=== PATIENT | female | born 1950 | race Caucasian/White ===

== ENCOUNTER 2024-01-17 14:25 | Outpatient (CLI) | payer MEDICAID, MEDICARE ==
[2024-01-17 16:03] LABS: BASOPHILS # (AUTO) 0.1 X10'3 (0-0.2); BASOPHILS % (AUTO) 0.9 % (0-1); EOSINOPHILS # (AUTO) 0.1 X10'3 (0-0.9); EOSINOPHILS % (AUTO) 1.1 % (0-6); LYMPHOCYTES # (AUTO) 2.3 X10'3 (1.1-4.8); LYMPHOCYTES % (AUTO) 27.1 % (21-51); MEAN CORPUSCULAR HEMOGLOBIN 29.4 PG (27.0-31.0); MEAN CORPUSCULAR HGB CONC 33.4 g/dL (33.0-36.5); MEAN CORPUSCULAR VOLUME 88.2 FL (78-98); MEAN PLATELET VOLUME 8.9 FL (7.4-10.4); MONOCYTES # (AUTO) 0.7 X10'3 (0-0.9); MONOCYTES % (AUTO) 8.3 % (2-12); NEUTROPHILS # (AUTO) 5.4 X10'3 (1.8-7.7); NEUTROPHILS % (AUTO) 62.6 % (42-75); PRE OP HEMATOCRIT 41.6 % (35.0-45.0); PRE OP HEMOGLOBIN 13.9 g/dL (12.0-16.0); PRE OP PLATELET COUNT 245 X10'3 (140-440); PRE OP WHITE BLOOD COUNT 8.6 10'3 (4.8-10.8); RED BLOOD COUNT 4.72 X10'6 (4.20-5.60); RED CELL DISTRIBUTION WIDTH 14.1 % (11.5-14.5)
[2024-01-17] MEDS ORDERED: LEVO150C4 PO (16:15)
[2024-01-17] MEDS ORDERED: ATOR40TA72 PO (16:15)
[2024-01-17] MEDS ORDERED: OMEP20CA15 PO (16:15)
[2024-01-17] MEDS ORDERED: METO-384 PO (16:15)
[2024-01-17] MEDS ORDERED: SPIR25TA5 PO (16:15)
[2024-01-17] MEDS ORDERED: GABA-530 PO (16:15)
[2024-01-17] MEDS ORDERED: ASPI-611 PO (16:15)
[2024-01-17] MEDS ORDERED: DAPA5TAB PO (16:17)
[2024-01-17] MEDS ORDERED: INSU100I31 SQ (16:17)
[2024-01-17] MEDS ORDERED: EXEN2AUT SUBCUT (16:17)
[2024-01-17 16:21] LABS: ALBUMIN 3.5 G/DL (3.4-5.0); BLOOD UREA NITROGEN 16 MG/DL (7-18); BUN/CREATININE RATIO 17.8 (10.0-20.0); CALCIUM 9.3 MG/DL (8.5-10.1); CHLORIDE 101 MMOL/L (99-107); PRE OP ANION GAP 7 (8-16); PRE OP BILIRUB, TOTAL 0.4 MG/DL (0.0-1.0); PRE OP POTASSIUM 3.8 MMOL/L (3.4-5.1); PRE OP SODIUM 136 MMOL/L (135-145); TOTAL CARBON DIOXIDE 27.9 MMOL/L (24-32); TOTAL PROTEIN 8.2 G/DL (6.4-8.2); eGFR 62 ML/MIN
[2024-01-17 16:22] LABS: ALBUMIN/GLOBULIN RATIO 0.7 (1.1-1.5); ALKALINE PHOSPHATASE 97 IU/L (46-116); PRE OP ALT 25 U/L (30-65); PRE OP AST 16 U/L (10-37)
[2024-01-17 16:31] LABS: PRE OP GLUCOSE 222 MG/DL (70-104)
== END 2024-01-17 23:59 | disposition home or self-care (01) ==
LOC: LAB 14:25 → EDSTATUS 01-23 07:30
PROVIDERS: ATTEND Orthopaedic Surgery
DX: M17.12 Unilateral primary osteoarthritis, left knee (principal); M25.562 Pain in left knee
CPT/HCPCS: 36415; 80053; 83036; 85025; 87081; J7120